=== PATIENT | female | born 2000 | race Caucasian/White ===

== ENCOUNTER 2021-09-08 19:25 | Outpatient (CLI) | payer SELFPAY | END 2021-09-08 19:26 | disposition left against medical advice (07) | LOC: EMS 19:25 | DX: F10.129 Alcohol abuse with intoxication, unspecified (principal) ==

== ENCOUNTER 2022-03-19 15:52 | Outpatient (CLI) | payer MEDICAID, OTHER | END 2022-03-19 23:59 | disposition critical access hospital (66) | LOC: EMS 15:52 | DX: R10.11 Right upper quadrant pain (principal); M54.50 Low back pain, unspecified; R42 Dizziness and giddiness; R11.0 Nausea; V53.5XXA Driver of pick-up truck or van injured in collision with car, pick-up truck or van in traffic accident, initial encounter; Y92.413 State road as the place of occurrence of the external cause | CPT/HCPCS: A0425; A0429 ==

== ENCOUNTER 2022-03-19 16:20 | Emergency (ER) | payer MEDICAID, OTHER ==
[2022-03-19 16:36] LABS: BASOPHILS % (AUTO) 0.5 %; EOSINOPHILS # (AUTO) 0.2 10^3/uL (0.0-0.7); EOSINOPHILS % (AUTO) 2.6 %; HGB - HEMOGLOBIN 13.1 g/dL (12.0-16.0); LYMPHOCYTES # (AUTO) 1.4 10^3/uL (1.5-3.5); LYMPHOCYTES % (AUTO) 18.3 %; MEAN CORPUSCULAR HEMOGLOBIN 28.7 pg (27.0-31.0); MEAN CORPUSCULAR HGB CONC 31.2 g/dL (32.0-36.0); MEAN CORPUSCULAR VOLUME 92.1 fL (81.0-99.0); MEAN PLATELET VOLUME 9.5 fL (7.9-10.8); MONOCYTES # (AUTO) 0.5 10^3/uL (0.0-1.0); MONOCYTES % (AUTO) 5.8 %; NEUTROPHILS # (AUTO) 5.7 10^3/uL (1.5-6.6); NEUTROPHILS % (AUTO) 72.5 %; PLT - PLATELET COUNT 274 10^3/uL (130-450); RED BLOOD COUNT 4.56 10^6/uL (4.20-5.40); RED CELL DISTRIBUTION WIDTH 13.3 % (12.0-15.0); WHITE BLOOD COUNT 7.8 x10^3/uL (4.8-10.8)
[2022-03-19] MEDS ORDERED: iohexoL-300 100 ML VIAL ONE (16:39)
[2022-03-19 16:47] LABS: ALBUMIN/GLOBULIN RATIO 1.5 (1.0-2.2); BILIRUBIN,TOTAL 0.5 mg/dL (0.2-1.0); CALCIUM 9.2 mg/dL (8.5-10.3); CREATININE 0.6 mg/dL (0.4-1.0); INR 1.2 (0.8-1.2); POTASSIUM 3.7 mmol/L (3.5-5.0); PT - PROTHROMBIN TIME 13.2 secs (9.9-12.6); TOTAL PROTEIN 6.6 g/dL (6.7-8.2)
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
[2022-03-19] MEDS ORDERED: MORPHINE 2 MG/ML CARPUJECT IVP STA (16:58)
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
[2022-03-19] MEDS ORDERED: iohexoL-300 100 ML VIAL IVP ONE (17:04)
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
[2022-03-19] MEDS ORDERED: ONDANSETRON ODT 4 MG TABLET TL STA (17:38)
[2022-03-19 17:49] VITALS: BP 120/85
== END 2022-03-19 17:49 | disposition home or self-care (01) ==
LOC: EDUNIT# → ED 16:20
DX: M54.50 Low back pain, unspecified (principal); R10.10 Upper abdominal pain, unspecified; M54.2 Cervicalgia
CPT/HCPCS: 36415; 70450; 71045; 71260; 72125; 74177; 80053; 83690; 85025; 85610; 96374; 99282; 99284; Q9967